=== PATIENT | female | born 1950 | race Caucasian/White ===

== ENCOUNTER 2021-07-14 15:58 | Emergency (ER) | payer OTHER ==
[~2021-07-14] VITALS: Ht 152.4 cm; Wt 116.6 kg
[2021-07-14] MEDS ORDERED: KETOROLAC TROMETH 60MG/2ML VIAL IM ONE (17:45)
[2021-07-14 18:47] VITALS: BP 138/88
== END 2021-07-14 18:59 | disposition home or self-care (01) ==
LOC: ER 15:58
DX: S93.402A Sprain of unspecified ligament of left ankle, initial encounter (principal); E11.9 Type 2 diabetes mellitus without complications; I10 Essential (primary) hypertension; W01.0XXA Fall on same level from slipping, tripping and stumbling without subsequent striking against object, initial encounter; Y93.89 Activity, other specified; Y92.89 Other specified places as the place of occurrence of the external cause; Y99.8 Other external cause status
CPT/HCPCS: 73610; 96372; 99283; J1885

== ENCOUNTER 2021-07-20 18:11 | Emergency (ER) | payer OTHER ==
[~2021-07-20] VITALS: Ht 160 cm; Wt 112.0 kg
[2021-07-20 19:53] VITALS: BP 103/76
[2021-07-20] MEDS ORDERED: KETOROLAC TROMETH 60MG/2ML VIAL IM ONE (20:30)
[2021-07-20] MEDS ORDERED: IBUP800T27 PO (23:02)
== END 2021-07-20 23:40 | disposition home or self-care (01) ==
LOC: ER 18:17
DX: S29.012A Strain of muscle and tendon of back wall of thorax, initial encounter (principal); J45.909 Unspecified asthma, uncomplicated; E11.9 Type 2 diabetes mellitus without complications; I10 Essential (primary) hypertension; Z68.41 Body mass index [BMI] 40.0-44.9, adult; E66.9 Obesity, unspecified; W07.XXXA Fall from chair, initial encounter; Y93.89 Activity, other specified; Y92.89 Other specified places as the place of occurrence of the external cause; Y99.8 Other external cause status
CPT/HCPCS: 72070; 96372; 99283; J1885

== ENCOUNTER 2021-07-29 14:26 | Inpatient (IN) | payer OTHER ==
[~2021-07-29] VITALS: Ht 160 cm; Wt 105.3 kg
[~2021-07-29 14:26] MED LIST: IBUP800T27 PO
[2021-07-29] MEDS ORDERED: AZITHROMYCIN 500MG/ 250ML 250 ML IV ONE (17:00)
[2021-07-29] MEDS ORDERED: cefTRIAXone 1GM/50ML D5W 50 ML IV ONE (17:00)
[2021-07-29] MEDS ORDERED: DexAMETHasone SOD PHOS 10MG/1ML VIAL INJ IV ONE (17:00)
[2021-07-29] MEDS ORDERED: MORPHINE SULFATE INJECTION 2 MG/ML SYRG IV PRN (17:15)
[2021-07-29] MEDS ORDERED: NITROGLYCERIN 0.4 MG SL TAB SL PRN (17:15)
[2021-07-29] MEDS ORDERED: FAMOTIDINE (10MG/ML) 2ML VL IV ONE (18:45)
[2021-07-29] MEDS ORDERED: DOCUSATE SOD 100 MG CAP PO PRN (18:45)
[2021-07-29] MEDS ORDERED: LACTULOSE 20Gm/30ML SOLN PO PRN (18:45)
[2021-07-29] MEDS ORDERED: REMDESIVIR PER PHARMACY 0 ML IV SCH (18:45)
[2021-07-29] MEDS ORDERED: ACETAMINOPHEN 500 MG TAB PO PRN (18:45)
[2021-07-29] MEDS ORDERED: hydrALAZINE HCL 20 MG/ML VL IV PRN (18:45)
[2021-07-29 22:00] VITALS: BP 125/62
[2021-07-29] MEDS: BUDESONIDE (INHALATION) 180 MCG IH IN SCH (22:00)
[2021-07-29 22:33] LABS: Basophils # (auto) 0 10 ^3/uL (0-0.2); Basophils % (auto) 0.3 % (0.0-2.0); Eosinophils # (auto) 0 10 ^3/uL (0-0.8); Eosinophils % (auto) 0.1 % (0.0-7.0); Hemoglobin 13.4 g/dL (12.2-16.2); Lymphocytes # (auto) 0.3 10 ^3/uL (0.4-5.4); Lymphocytes % (auto) 5.8 % (10.0-50.0); Mean Corpuscular Hemoglobin 29.3 pg (28.0-32.0); Mean Corpuscular Hgb Conc. 34.4 g/dL (32.0-36.0); Mean Corpuscular Volume 85.4 fL (80.0-100.0); Monocytes # (auto) 0.3 10 ^3/uL (0-1.3); Monocytes % (auto) 6.1 % (0.0-12.0); Neutrophils # (auto) 4.5 10 ^3/uL (1.6-8.6); Neutrophils % (auto) 87.7 % (37.0-80.0); Nucleated Red Blood Cells % 0.2 %; Red Blood Cells 4.57 10^6/uL (4.0-5.20); Red Cell Distribution Width 14.5 % (11.8-14.3); White Blood Cell 5.1 10^3/uL (4.4-10.8)
[2021-07-29 22:45] LABS: Albumin 2.4 g/dL (3.4-5.0); Calcium 8.6 mg/dL (8.5-10.1); INR 1.04 (0.9-1.15); Partial Thromboplastin Time 30.4 sec (23.6-33.0); Potassium 3.8 mmol/L (3.5-5.1)
[2021-07-29 22:52] LABS: BUN/Creatinine Ratio 22.6; Bilirubin, Total 0.7 mg/dL (0.2-1.0); Total Protein 6.5 g/dL (6.4-8.2)
[2021-07-29 22:56] LABS: Thyroid Stimulating Hormone 1.06 uIU/mL (0.358-3.74)
[2021-07-29] MEDS ORDERED: DEXTROSE (50%) 50ML SYRG IV PRN (23:15)
[2021-07-29] MEDS: DOXYCYCLINE 100MG/250ML 250 ML IV SCH (23:36)
[2021-07-29] MEDS: ATORVASTATIN 20 MG TAB PO SCH (23:37)
[2021-07-29] MEDS: ENOXAPARIN SOD 40 MG/0.4 ML SYRINGE SC SCH (23:37)
[2021-07-30] MEDS ORDERED: ALBUMIN 25% 100 ML IV ONE (00:30)
[2021-07-30 05:00] VITALS: BP 126/62
[2021-07-30] MEDS: ACCU-CHEK COMFORT CURVE STRIP VI SCH ×4 (06:36→21:40)
[2021-07-30] MEDS: FUROSEMIDE 20 MG/2 ML VIAL IV SCH ×2 (06:36→18:01)
[2021-07-30] MEDS: InsuLIN REG 1unit/0.01ml Soln (100units/ml) SC SCH ×4 (06:38→21:33)
[2021-07-30 06:48] LABS: Potassium 3.7 mmol/L (3.5-5.1)
[2021-07-30 06:55] LABS: Basophils # (auto) 0 10 ^3/uL (0-0.2); Basophils % (auto) 0.2 % (0.0-2.0); Eosinophils # (auto) 0 10 ^3/uL (0-0.8); Hemoglobin 12.8 g/dL (12.2-16.2); Lymphocytes # (auto) 0.4 10 ^3/uL (0.4-5.4); Lymphocytes % (auto) 11.9 % (10.0-50.0); Mean Corpuscular Hemoglobin 28.9 pg (28.0-32.0); Mean Corpuscular Hgb Conc. 33.6 g/dL (32.0-36.0); Mean Corpuscular Volume 86.1 fL (80.0-100.0); Monocytes # (auto) 0.2 10 ^3/uL (0-1.3); Monocytes % (auto) 6.4 % (0.0-12.0); Neutrophils # (auto) 2.4 10 ^3/uL (1.6-8.6); Neutrophils % (auto) 81.5 % (37.0-80.0); Nucleated Red Blood Cells % 0.1 %; Red Blood Cells 4.42 10^6/uL (4.0-5.20); Red Cell Distribution Width 14.3 % (11.8-14.3)
[2021-07-30 06:57] LABS: Albumin 2.9 g/dL (3.4-5.0); BUN/Creatinine Ratio 24.7; Bilirubin, Total 0.7 mg/dL (0.2-1.0); Calcium 8.9 mg/dL (8.5-10.1); Magnesium 2.1 mg/dL (1.6-2.6); Phosphorus 3.4 mg/dL (2.5-4.90); Total Protein 6.7 g/dL (6.4-8.2)
[2021-07-30] MEDS: ALBUTEROL SULF HFA 90MCG INH 200DOSE IN PRN (07:21)
[2021-07-30] MEDS: BUDESONIDE (INHALATION) 180 MCG IH IN SCH ×2 (07:21→20:26)
[2021-07-30 07:31] LABS: INR 1.03 (0.9-1.15); Partial Thromboplastin Time 32.3 sec (23.6-33.0)
[2021-07-30 09:00] VITALS: BP 117/55
[2021-07-30 09:04] LABS: Urine Bacteria MOD /hpf (None Seen); Urine Blood Negative /uL (Negative); Urine Hyaline Cast FEW /lpf (0 - 2); Urine Mucus FEW (None Seen); Urine Specific Gravity 1.014 (1.001-1.035); Urine WBC 90 /hpf (0 - 5)
[2021-07-30] MEDS: DexAMETHasone SOD PHOS 10MG/1ML VIAL INJ IV SCH (09:49)
[2021-07-30] MEDS: DOXYCYCLINE 100MG/250ML 250 ML IV SCH ×2 (09:49→21:39)
[2021-07-30] MEDS: FAMOTIDINE (10MG/ML) 2ML VL IV SCH (09:49)
[2021-07-30] MEDS: ASCORBIC ACID 1,000 MG TAB PO SCH (09:50)
[2021-07-30] MEDS: SERTRALINE HCL 50 MG TAB PO SCH (09:50)
[2021-07-30] MEDS: ZINC SULFATE 220mg CAP or TAB PO SCH (09:50)
[2021-07-30] MEDS: ASPirin 81 mg TAB PO SCH (09:50)
[2021-07-30] MEDS: CHOLECALCIFEROL (VITD3) 2,000 UNIT CAP/TAB PO SCH (09:50)
[2021-07-30] MEDS: ENOXAPARIN SOD 40 MG/0.4 ML SYRINGE SC SCH ×2 (09:51→21:40)
[2021-07-30] MEDS: POTASSIUM CHL 20 Meq TABLET PO SCH ×2 (09:51→21:40)
[2021-07-30] MEDS ORDERED: DAPAGLIFLOZIN 5 MG TAB PO SCH (10:00)
[2021-07-30 13:00] VITALS: BP 113/52
[2021-07-30] MEDS ORDERED: SERT50TA19 PO (13:38)
[2021-07-30] MEDS ORDERED: HYDR-4798 PO (13:38)
[2021-07-30] MEDS ORDERED: OMEP20TA PO (13:38)
[2021-07-30] MEDS ORDERED: BENA20TA14 PO (13:38)
[2021-07-30] MEDS ORDERED: PRE1T PO (13:38)
[2021-07-30] MEDS ORDERED: REMDESIVIR 200 MG in NS 210ml LOADING DOSE ADULT IV ONE (15:00)
[2021-07-30] MEDS: ATORVASTATIN 20 MG TAB PO SCH (21:39)
[2021-07-30 22:00] VITALS: BP 113/59
[2021-07-31 05:00] VITALS: BP 127/55
[2021-07-31] MEDS: InsuLIN REG 1unit/0.01ml Soln (100units/ml) SC SCH ×4 (06:12→21:46)
[2021-07-31] MEDS: FUROSEMIDE 20 MG/2 ML VIAL IV SCH ×2 (06:13→17:37)
[2021-07-31] MEDS: ACCU-CHEK COMFORT CURVE STRIP VI SCH ×4 (06:14→21:46)
[2021-07-31 07:56] LABS: Albumin 2.8 g/dL (3.4-5.0); Calcium 8.9 mg/dL (8.5-10.1); Potassium 3.6 mmol/L (3.5-5.1)
[2021-07-31] MEDS: ALBUTEROL SULF HFA 90MCG INH 200DOSE IN PRN ×2 (08:02→20:09)
[2021-07-31] MEDS: BUDESONIDE (INHALATION) 180 MCG IH IN SCH ×2 (08:02→20:09)
[2021-07-31 08:06] LABS: BUN/Creatinine Ratio 29.6; Bilirubin, Total 0.6 mg/dL (0.2-1.0); CRP High Sensitivity 7.54 mg/dL (< 0.3); Total Protein 6.5 g/dL (6.4-8.2)
[2021-07-31 09:00] VITALS: BP 117/64
[2021-07-31] MEDS: DexAMETHasone SOD PHOS 10MG/1ML VIAL INJ IV SCH (09:19)
[2021-07-31] MEDS: FAMOTIDINE (10MG/ML) 2ML VL IV SCH (09:19)
[2021-07-31] MEDS: POTASSIUM CHL 20 Meq TABLET PO SCH ×2 (09:20→21:44)
[2021-07-31] MEDS: ASPirin 81 mg TAB PO SCH (09:20)
[2021-07-31] MEDS: CHOLECALCIFEROL (VITD3) 2,000 UNIT CAP/TAB PO SCH (09:20)
[2021-07-31] MEDS: SERTRALINE HCL 50 MG TAB PO SCH (09:21)
[2021-07-31] MEDS: ZINC SULFATE 220mg CAP or TAB PO SCH (09:21)
[2021-07-31] MEDS: ASCORBIC ACID 1,000 MG TAB PO SCH (09:21)
[2021-07-31] MEDS: ENOXAPARIN SOD 40 MG/0.4 ML SYRINGE SC SCH ×2 (09:21→21:44)
[2021-07-31] MEDS: DOXYCYCLINE 100MG/250ML 250 ML IV SCH ×2 (09:22→21:45)
[2021-07-31 13:00] VITALS: BP 137/60
[2021-07-31] MEDS: REMDESIVIR 100mg 100 MG in SODIUM CHL 0.9% 230 ML IV SCH (15:49)
[2021-07-31 17:00] VITALS: BP 128/68
[2021-07-31] MEDS ORDERED: VANCOMYCIN PER PHARMACY 0 MG IV SCH (18:15)
[2021-07-31] MEDS: VANCOMYCIN 1GM/250ML 250 ML IV SCH (20:28)
[2021-07-31 22:00] VITALS: BP 96/65
[2021-08-01] MEDS ORDERED: HYDROcodone-ACET 5/325MG TAB PO ONE (01:45)
[2021-08-01 05:00] VITALS: BP 114/59
[2021-08-01] MEDS: FUROSEMIDE 20 MG/2 ML VIAL IV SCH ×2 (06:03→18:28)
[2021-08-01] MEDS: InsuLIN REG 1unit/0.01ml Soln (100units/ml) SC SCH ×4 (06:21→22:24)
[2021-08-01] MEDS: ACCU-CHEK COMFORT CURVE STRIP VI SCH ×4 (06:21→21:36)
[2021-08-01 06:41] LABS: Albumin 2.7 g/dL (3.4-5.0); Potassium 3.6 mmol/L (3.5-5.1)
[2021-08-01 06:44] LABS: BUN/Creatinine Ratio 30.4; Bilirubin, Total 0.6 mg/dL (0.2-1.0); Total Protein 5.9 g/dL (6.4-8.2)
[2021-08-01 07:00] LABS: Basophils # (auto) 0 10 ^3/uL (0-0.2); Basophils % (auto) 0.1 % (0.0-2.0); Eosinophils # (auto) 0 10 ^3/uL (0-0.8); Hematocrit 35.2 % (36.0-46.0); Hemoglobin 12.2 g/dL (12.2-16.2); Lymphocytes # (auto) 0.6 10 ^3/uL (0.4-5.4); Lymphocytes % (auto) 9.1 % (10.0-50.0); Mean Corpuscular Hemoglobin 29.2 pg (28.0-32.0); Mean Corpuscular Hgb Conc. 34.5 g/dL (32.0-36.0); Mean Corpuscular Volume 84.5 fL (80.0-100.0); Monocytes # (auto) 0.7 10 ^3/uL (0-1.3); Monocytes % (auto) 10.8 % (0.0-12.0); Neutrophils # (auto) 5.5 10 ^3/uL (1.6-8.6); Red Blood Cells 4.16 10^6/uL (4.0-5.20); Red Cell Distribution Width 14.3 % (11.8-14.3); White Blood Cell 6.9 10^3/uL (4.4-10.8)
[2021-08-01] MEDS: ALBUTEROL SULF HFA 90MCG INH 200DOSE IN PRN ×2 (07:34→20:16)
[2021-08-01] MEDS: BUDESONIDE (INHALATION) 180 MCG IH IN SCH ×2 (07:34→20:16)
[2021-08-01] MEDS: VANCOMYCIN 1GM/250ML 250 ML IV SCH ×2 (08:53→21:35)
[2021-08-01] MEDS: ASCORBIC ACID 1,000 MG TAB PO SCH (08:54)
[2021-08-01] MEDS: DexAMETHasone SOD PHOS 10MG/1ML VIAL INJ IV SCH (08:54)
[2021-08-01] MEDS: ENOXAPARIN SOD 40 MG/0.4 ML SYRINGE SC SCH ×2 (08:54→21:36)
[2021-08-01] MEDS: ASPirin 81 mg TAB PO SCH (08:55)
[2021-08-01] MEDS: CHOLECALCIFEROL (VITD3) 2,000 UNIT CAP/TAB PO SCH (08:55)
[2021-08-01] MEDS: ZINC SULFATE 220mg CAP or TAB PO SCH (08:55)
[2021-08-01] MEDS: POTASSIUM CHL 20 Meq TABLET PO SCH ×2 (08:55→21:36)
[2021-08-01] MEDS: SERTRALINE HCL 50 MG TAB PO SCH (08:55)
[2021-08-01 09:00] VITALS: BP 117/62
[2021-08-01] MEDS: DOXYCYCLINE 100MG/250ML 250 ML IV SCH ×2 (10:00→22:52)
[2021-08-01 13:00] VITALS: BP 132/62
[2021-08-01] MEDS: REMDESIVIR 100mg 100 MG in SODIUM CHL 0.9% 230 ML IV SCH (15:46)
[2021-08-01 17:00] VITALS: BP 134/78
[2021-08-01 22:00] VITALS: BP 125/74
[2021-08-02 05:00] VITALS: BP 146/85
[2021-08-02] MEDS: ACCU-CHEK COMFORT CURVE STRIP VI SCH ×4 (06:27→22:24)
[2021-08-02] MEDS: InsuLIN REG 1unit/0.01ml Soln (100units/ml) SC SCH ×4 (06:28→22:40)
[2021-08-02] MEDS: FUROSEMIDE 20 MG/2 ML VIAL IV SCH ×2 (06:32→18:00)
[2021-08-02] MEDS: BUDESONIDE (INHALATION) 180 MCG IH IN SCH (07:10)
[2021-08-02 07:48] LABS: Basophils # (auto) 0 10 ^3/uL (0-0.2); Eosinophils # (auto) 0 10 ^3/uL (0-0.8); Eosinophils % (auto) 0.1 % (0.0-7.0); Hemoglobin 12.5 g/dL (12.2-16.2); Lymphocytes # (auto) 0.8 10 ^3/uL (0.4-5.4); Lymphocytes % (auto) 12.7 % (10.0-50.0); Mean Corpuscular Hemoglobin 28.4 pg (28.0-32.0); Mean Corpuscular Volume 86.1 fL (80.0-100.0); Monocytes # (auto) 0.8 10 ^3/uL (0-1.3); Monocytes % (auto) 12.9 % (0.0-12.0); Neutrophils # (auto) 4.5 10 ^3/uL (1.6-8.6); Neutrophils % (auto) 74.3 % (37.0-80.0); Nucleated Red Blood Cells % 0.1 %; Red Blood Cells 4.42 10^6/uL (4.0-5.20); White Blood Cell 6.1 10^3/uL (4.4-10.8)
[2021-08-02 08:00] VITALS: BP 128/64
[2021-08-02] MEDS: VANCOMYCIN 1GM/250ML 250 ML IV SCH ×2 (08:00→20:55)
[2021-08-02 08:11] LABS: Albumin 2.7 g/dL (3.4-5.0); Calcium 9.1 mg/dL (8.5-10.1); Potassium 3.5 mmol/L (3.5-5.1)
[2021-08-02 08:17] LABS: BUN/Creatinine Ratio 29.5; Bilirubin, Total 0.5 mg/dL (0.2-1.0); Total Protein 5.9 g/dL (6.4-8.2)
[2021-08-02] MEDS: ASPirin 81 mg TAB PO SCH (10:00)
[2021-08-02] MEDS: ASCORBIC ACID 1,000 MG TAB PO SCH (10:00)
[2021-08-02] MEDS: POTASSIUM CHL 20 Meq TABLET PO SCH ×2 (10:00→22:32)
[2021-08-02] MEDS: ZINC SULFATE 220mg CAP or TAB PO SCH (10:00)
[2021-08-02] MEDS: DexAMETHasone SOD PHOS 10MG/1ML VIAL INJ IV SCH (10:00)
[2021-08-02] MEDS: DOXYCYCLINE 100MG/250ML 250 ML IV SCH ×2 (10:00→22:32)
[2021-08-02] MEDS: CHOLECALCIFEROL (VITD3) 2,000 UNIT CAP/TAB PO SCH (10:00)
[2021-08-02] MEDS: ENOXAPARIN SOD 40 MG/0.4 ML SYRINGE SC SCH ×2 (10:00→22:32)
[2021-08-02] MEDS: SERTRALINE HCL 50 MG TAB PO SCH (10:00)
[2021-08-02 12:00] VITALS: BP 144/84
[2021-08-02] MEDS: REMDESIVIR 100mg 100 MG in SODIUM CHL 0.9% 230 ML IV SCH (15:00)
[2021-08-02 16:00] VITALS: BP 110/62
[2021-08-02] MEDS: PROMETHAZINE-DM 5 ML ORAL SYRUP PO PRN ×2 (16:15→22:40)
[2021-08-02 22:00] VITALS: BP 126/73
[2021-08-03 05:00] VITALS: BP 137/57
[2021-08-03] MEDS: ACCU-CHEK COMFORT CURVE STRIP VI SCH ×4 (06:13→21:44)
[2021-08-03] MEDS: InsuLIN REG 1unit/0.01ml Soln (100units/ml) SC SCH ×4 (06:19→21:46)
[2021-08-03] MEDS: FUROSEMIDE 20 MG/2 ML VIAL IV SCH ×2 (06:24→18:00)
[2021-08-03] MEDS: ALBUTEROL SULF HFA 90MCG INH 200DOSE IN PRN ×2 (06:53→19:33)
[2021-08-03] MEDS: BUDESONIDE (INHALATION) 180 MCG IH IN SCH ×2 (06:53→19:33)
[2021-08-03 07:59] LABS: Potassium 3.5 mmol/L (3.5-5.1)
[2021-08-03] MEDS: VANCOMYCIN 1GM/250ML 250 ML IV SCH ×2 (08:00→20:34)
[2021-08-03 08:05] LABS: BUN/Creatinine Ratio 27.5; Bilirubin, Total 0.7 mg/dL (0.2-1.0); Calcium 9.4 mg/dL (8.5-10.1); Total Protein 6.2 g/dL (6.4-8.2)
[2021-08-03] MEDS: MORPHINE SULFATE INJECTION 2 MG/ML SYRG IV PRN (08:18)
[2021-08-03] MEDS: ONDANSETRON HCL 4 MG/2 ML VIAL IV PRN (08:18)
[2021-08-03 09:00] VITALS: BP 103/74
[2021-08-03] MEDS: ENOXAPARIN SOD 40 MG/0.4 ML SYRINGE SC SCH ×2 (10:00→21:44)
[2021-08-03] MEDS: DOXYCYCLINE 100MG/250ML 250 ML IV SCH (10:00)
[2021-08-03] MEDS: SERTRALINE HCL 50 MG TAB PO SCH (10:00)
[2021-08-03] MEDS: ZINC SULFATE 220mg CAP or TAB PO SCH (10:00)
[2021-08-03] MEDS: ASCORBIC ACID 1,000 MG TAB PO SCH (10:00)
[2021-08-03] MEDS: DexAMETHasone SOD PHOS 10MG/1ML VIAL INJ IV SCH (10:00)
[2021-08-03] MEDS: POTASSIUM CHL 20 Meq TABLET PO SCH ×2 (10:00→21:43)
[2021-08-03] MEDS: ASPirin 81 mg TAB PO SCH (10:00)
[2021-08-03] MEDS: CHOLECALCIFEROL (VITD3) 2,000 UNIT CAP/TAB PO SCH (10:00)
[2021-08-03 13:00] VITALS: BP 112/69
[2021-08-03] MEDS: PROMETHAZINE-DM 5 ML ORAL SYRUP PO PRN (14:18)
[2021-08-03 17:00] VITALS: BP 116/60
[2021-08-03] MEDS: REMDESIVIR 100mg 100 MG in SODIUM CHL 0.9% 230 ML IV SCH (17:51)
[2021-08-03 22:00] VITALS: BP 113/54
[2021-08-04 03:20] VITALS: BP 113/54
[2021-08-04 05:00] VITALS: BP 126/61
[2021-08-04] MEDS: FUROSEMIDE 20 MG/2 ML VIAL IV SCH ×2 (06:26→18:00)
[2021-08-04] MEDS: ACCU-CHEK COMFORT CURVE STRIP VI SCH ×4 (06:26→22:38)
[2021-08-04] MEDS: InsuLIN REG 1unit/0.01ml Soln (100units/ml) SC SCH ×4 (06:28→22:39)
[2021-08-04 07:07] LABS: Basophils # (auto) 0 10 ^3/uL (0-0.2); Basophils % (auto) 0.3 % (0.0-2.0); Eosinophils # (auto) 0.1 10 ^3/uL (0-0.8); Hematocrit 37.7 % (36.0-46.0); Hemoglobin 13.1 g/dL (12.2-16.2); Lymphocytes # (auto) 1.1 10 ^3/uL (0.4-5.4); Lymphocytes % (auto) 13.9 % (10.0-50.0); Mean Corpuscular Hemoglobin 29.4 pg (28.0-32.0); Mean Corpuscular Hgb Conc. 34.8 g/dL (32.0-36.0); Mean Corpuscular Volume 84.5 fL (80.0-100.0); Monocytes # (auto) 0.9 10 ^3/uL (0-1.3); Monocytes % (auto) 10.6 % (0.0-12.0); Neutrophils % (auto) 74.2 % (37.0-80.0); Nucleated Red Blood Cells % 0.3 %; Red Blood Cells 4.46 10^6/uL (4.0-5.20); Red Cell Distribution Width 14.1 % (11.8-14.3); White Blood Cell 8.1 10^3/uL (4.4-10.8)
[2021-08-04] MEDS: MORPHINE SULFATE INJECTION 2 MG/ML SYRG IV PRN (07:31)
[2021-08-04] MEDS: ONDANSETRON HCL 4 MG/2 ML VIAL IV PRN (07:32)
[2021-08-04 07:42] LABS: Albumin 2.8 g/dL (3.4-5.0); BUN/Creatinine Ratio 30.6; Bilirubin, Total 0.7 mg/dL (0.2-1.0); Calcium 9.2 mg/dL (8.5-10.1); Total Protein 5.7 g/dL (6.4-8.2)
[2021-08-04] MEDS: VANCOMYCIN 1GM/250ML 250 ML IV SCH ×2 (08:00→21:13)
[2021-08-04 09:00] VITALS: BP 123/70
[2021-08-04] MEDS: SERTRALINE HCL 50 MG TAB PO SCH (10:00)
[2021-08-04] MEDS: ZINC SULFATE 220mg CAP or TAB PO SCH (10:00)
[2021-08-04] MEDS: POTASSIUM CHL 20 Meq TABLET PO SCH ×2 (10:00→22:37)
[2021-08-04] MEDS: DexAMETHasone SOD PHOS 10MG/1ML VIAL INJ IV SCH (10:00)
[2021-08-04] MEDS: ENOXAPARIN SOD 40 MG/0.4 ML SYRINGE SC SCH ×2 (10:00→22:38)
[2021-08-04] MEDS: CHOLECALCIFEROL (VITD3) 2,000 UNIT CAP/TAB PO SCH (10:00)
[2021-08-04] MEDS: ASCORBIC ACID 1,000 MG TAB PO SCH (10:00)
[2021-08-04] MEDS: ASPirin 81 mg TAB PO SCH (10:00)
[2021-08-04 13:04] VITALS: BP 126/72
[2021-08-04] MEDS: ALBUTEROL SULF HFA 90MCG INH 200DOSE IN PRN ×2 (15:22→20:53)
[2021-08-04] MEDS: BUDESONIDE (INHALATION) 180 MCG IH IN SCH ×2 (15:22→20:53)
[2021-08-04 17:00] VITALS: BP 122/65
[2021-08-04] MEDS: PROMETHAZINE-DM 5 ML ORAL SYRUP PO PRN (18:30)
[2021-08-04 22:00] VITALS: BP 124/73
[2021-08-05 05:00] VITALS: BP 127/69
[2021-08-05] MEDS: FUROSEMIDE 20 MG/2 ML VIAL IV SCH (06:24)
[2021-08-05] MEDS: ACCU-CHEK COMFORT CURVE STRIP VI SCH ×2 (06:25→11:46)
[2021-08-05] MEDS: InsuLIN REG 1unit/0.01ml Soln (100units/ml) SC SCH ×2 (06:27→11:47)
[2021-08-05] MEDS: ALBUTEROL SULF HFA 90MCG INH 200DOSE IN PRN (07:42)
[2021-08-05] MEDS: BUDESONIDE (INHALATION) 180 MCG IH IN SCH (07:42)
[2021-08-05 07:43] LABS: Basophils # (auto) 0 10 ^3/uL (0-0.2); Basophils % (auto) 0.5 % (0.0-2.0); Eosinophils # (auto) 0.2 10 ^3/uL (0-0.8); Eosinophils % (auto) 2.4 % (0.0-7.0); Hematocrit 42.7 % (36.0-46.0); Hemoglobin 14.8 g/dL (12.2-16.2); Lymphocytes # (auto) 1.3 10 ^3/uL (0.4-5.4); Lymphocytes % (auto) 12.8 % (10.0-50.0); Mean Corpuscular Hemoglobin 29.7 pg (28.0-32.0); Mean Corpuscular Hgb Conc. 34.7 g/dL (32.0-36.0); Mean Corpuscular Volume 85.7 fL (80.0-100.0); Monocytes # (auto) 0.9 10 ^3/uL (0-1.3); Monocytes % (auto) 8.5 % (0.0-12.0); Neutrophils # (auto) 7.7 10 ^3/uL (1.6-8.6); Neutrophils % (auto) 75.8 % (37.0-80.0); Nucleated Red Blood Cells % 0.5 %; Red Blood Cells 4.98 10^6/uL (4.0-5.20); Red Cell Distribution Width 14.8 % (11.8-14.3); White Blood Cell 10.2 10^3/uL (4.4-10.8)
[2021-08-05 08:03] LABS: Albumin 3.2 g/dL (3.4-5.0); BUN/Creatinine Ratio 22.5
[2021-08-05 08:11] LABS: Bilirubin, Total 0.8 mg/dL (0.2-1.0)
[2021-08-05 09:00] VITALS: BP 108/57
[2021-08-05] MEDS: DexAMETHasone SOD PHOS 10MG/1ML VIAL INJ IV SCH (09:10)
[2021-08-05] MEDS: ASCORBIC ACID 1,000 MG TAB PO SCH (09:11)
[2021-08-05] MEDS: POTASSIUM CHL 20 Meq TABLET PO SCH (09:11)
[2021-08-05] MEDS: ZINC SULFATE 220mg CAP or TAB PO SCH (09:11)
[2021-08-05] MEDS: ASPirin 81 mg TAB PO SCH (09:11)
[2021-08-05] MEDS: CHOLECALCIFEROL (VITD3) 2,000 UNIT CAP/TAB PO SCH (09:12)
[2021-08-05] MEDS: SERTRALINE HCL 50 MG TAB PO SCH (09:12)
[2021-08-05] MEDS: ENOXAPARIN SOD 40 MG/0.4 ML SYRINGE SC SCH (09:12)
[2021-08-05] MEDS ORDERED: VANCOMYCIN 1GM/250ML 250 ML IV SCH (10:00)
[2021-08-05] MEDS ORDERED: ASCO10003 PO (12:49)
[2021-08-05] MEDS ORDERED: LEVO750T8 PO (12:49)
[2021-08-05] MEDS ORDERED: ZINC220T6 PO (12:49)
[2021-08-05] MEDS ORDERED: CHOL500023 PO (12:49)
[2021-08-05] MEDS ORDERED: DEX4T PO (12:49)
[2021-08-05] MEDS ORDERED: ALBUAER3 IN (12:49)
[2021-08-05] MEDS ORDERED: ASPI-378 PO (12:49)
[2021-08-05] MEDS ORDERED: FAMO20TA10 PO (12:49)
[2021-08-05 13:26] VITALS: BP 116/55
[2021-08-05 14:07] VITALS: BP 127/69
== END 2021-08-05 16:50 | disposition home or self-care (01) | DRG 177 ==
LOC: EDBD 14:26 → ER 14:34 → TELE 17:15 → TELE-EAST 20:55
PROVIDERS: ADMIT Hospitalist; ATTEND Internal Medicine
PROC: XW033E5 Introduction of Remdesivir Anti-infective into Peripheral Vein, Percutaneous Approach, New Technology Group 5 (ICD-10-PCS; principal; 2021-07-30)
DX: U07.1 COVID-19 (principal); J12.82 Pneumonia due to coronavirus disease 2019; J96.01 Acute respiratory failure with hypoxia; J45.901 Unspecified asthma with (acute) exacerbation; Z68.41 Body mass index [BMI] 40.0-44.9, adult; D89.839 Cytokine release syndrome, grade unspecified; F32.9 Major depressive disorder, single episode, unspecified; E11.65 Type 2 diabetes mellitus with hyperglycemia; E66.01 Morbid (severe) obesity due to excess calories; E78.5 Hyperlipidemia, unspecified; I10 Essential (primary) hypertension; M19.90 Unspecified osteoarthritis, unspecified site; F41.9 Anxiety disorder, unspecified; M25.511 Pain in right shoulder; W18.39XA Other fall on same level, initial encounter; Y93.89 Activity, other specified; Y92.89 Other specified places as the place of occurrence of the external cause; Z90.49 Acquired absence of other specified parts of digestive tract; Y99.8 Other external cause status; B95.8 Unspecified staphylococcus as the cause of diseases classified elsewhere; Z23 Encounter for immunization
CPT/HCPCS: 36415; 36600; 71045; 73200; 80053; 80061; 80202; 81001; 82306; 82728; 82805; 82962; 83036; 83605; 83615; 83735; 83880; 84100; 84443; 84484; 85025; 85379; 85610; 85730; 86141; 87040; 87070; 87077; 87081; 87086; 87186; 87205; 87426; 93970; 94640; 96365; 96367; 96375; 99291; G0378; J0696; J1100; J1815; J2405; J3490; P9047